=== PATIENT | female | born 1975 | race Caucasian/White ===

== ENCOUNTER 2019-04-27 18:05 | Emergency (ER) | payer SELFPAY ==
[~2019-04-27] VITALS: Ht 165.1 cm; Wt 98.9 kg
[2019-04-27 18:27] VITALS: Ht 165.1 cm; Wt 98.9 kg
[2019-04-27 19:11] VITALS: BP 130/85
== END 2019-04-27 19:11 | disposition home or self-care (01) ==
LOC: ED 18:05
DX: N75.0 Cyst of Bartholin's gland (principal); E11.9 Type 2 diabetes mellitus without complications

== ENCOUNTER 2019-04-27 20:50 | Emergency (ER) | payer MEDICAID ==
[~2019-04-27] VITALS: Ht 167.6 cm; Wt 98.9 kg
[2019-04-27 23:27] VITALS: BP 128/92
== END 2019-04-27 23:27 | disposition home or self-care (01) ==
LOC: ED 20:50
DX: N75.1 Abscess of Bartholin's gland (principal)
CPT/HCPCS: J3490; J7040